=== PATIENT | male | born 1950 | race Caucasian/White ===

== ENCOUNTER → 2016-07-21 | Outpatient (CLI) | payer MEDICARE ==
[~2016-07-21] MED LIST: ASPI-558 PO; ATEN25TA PO; ATOR40TA64 PO; CLOP75TA PO; GABA-190 PO; HYDR-4246 PO; LANS15CA19 PO; LEVO112T7 PO; MINO100C43 PO; NITR0.4T39 SL; SERT100T12 PO
--- NOTE | 2016-07-21 08:58 | DI ---
Indication: ITS.REASON: I71.4 Abdominal aortic aneurysm, without rupture PROCEDURE: US ABDOMINAL AORTA, NON-DUPLEX: Encounter: Subsequent Comparison: April 23, 2013 Technique: Grayscale and color Doppler sonographic imaging of the abdominal aorta was performed. Findings: The proximal aorta is mildly ectatic at 2.7 cm maximal dimension. The midportion of the aorta is normal in caliber at 2.3 cm diameter. Distal aorta again shows aneurysmal dilatation, currently measuring 3.6 cm in maximal dimension, compared to 3.2 cm previously. Mural thrombus is seen peripherally. Impression: Slow interval growth of the distal abdominal aortic aneurysm, currently 3.6 cm in diameter. At this size follow-up is recommended in 2 years. .
== END ==
LOC: IMA 07:54
PROVIDERS: ATTEND Family Medicine
DX: I71.4 Abdominal aortic aneurysm, without rupture (principal)